=== PATIENT | male | born 1975 | race American Indian/Alaskan Native ===

== ENCOUNTER 2020-12-30 19:59 | Emergency (ER) | payer SELFPAY ==
[2020-12-30 21:19] VITALS: BP 134/89
--- NOTE | 2020-12-30 21:23 | Event Note ---
ED Screening Note Date of service: 12/30/20 Time: 21:22 ED Screening Note: Patient brought in by EMS, [place] Patient admits to alcohol use Patient also states some chest pain, however denies shortness of breath Patient refuses EKG chest x-ray This initial assessment/diagnostic orders/clinical plan/treatment(s) is/are subject to change based on patients health status, clinical progression and re- assessment by fellow clinical providers in the ED. Further treatment and workup at subsequent clinical providers discretion. Patient/guardian urged not to elope from the ED as their condition may be serious if not clinically assessed and managed. Initial orders include: Labs
== END 2020-12-30 21:22 | disposition left against medical advice (07) ==
LOC: ED 19:59
DX: F10.10 Alcohol abuse, uncomplicated (principal); Z53.21 Procedure and treatment not carried out due to patient leaving prior to being seen by health care provider

== ENCOUNTER 2021-01-05 04:48 | Emergency (ER) | payer SELFPAY ==
[2021-01-05] MEDS ORDERED: LACTATED RINGERS 1,000 ML IV ONE (04:51)
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
--- NOTE | 2021-01-05 05:39 | XRay Report ---
XR chest 1V ap INDICATION / CLINICAL INFORMATION: dyspnea COMPARISON: None available. FINDINGS: SUPPORT DEVICES: None. HEART / MEDIASTINUM: No significant abnormality. LUNGS / PLEURA: Lungs are clear. Costophrenic sulci are sharp. No pneumothorax. ADDITIONAL FINDINGS: No significant additional findings. IMPRESSION: 1. No acute findings. Signer Name: Francis Randle MD Signed: 01/05/2021 5:35 AM Workstation Name: [id number]
[2021-01-05 05:43] LABS: Hematocrit 35.4 % (35.5-45.6); Hemoglobin 11.8 gm/dl (11.8-15.2); Mean Corpuscular HGB Conc 33 % (32-34); Mean Corpuscular Volume 94 fl (84-94); Platelet Count 166 K/mm3 (140-440); Red Blood Count 3.77 M/mm3 (3.65-5.03); Red Cell Distribution Width 15.7 % (13.2-15.2)
[2021-01-05 05:51] LABS: INR 0.99 (0.87-1.13)
[2021-01-05 05:52] LABS: Alanine Aminotransferase 16 units/L (7-56); Albumin 4.5 g/dL (3.9-5); BUN/Creatinine Ratio 8; Blood Urea Nitrogen 8 mg/dL (9-20); Calcium 8.7 mg/dL (8.4-10.2); Hemolysis Index 10
[2021-01-05] MEDS ORDERED: MAGNESIUM SULFATE 2 GM/50 ML BAG IV ONE (06:08)
--- NOTE | 2021-01-05 06:45 | Emergency Department Report ---
ED Chest Pain HPI - General Chief Complaint: Alcohol Stated Complaint: ETOH Time Seen by Provider: 01/05/21 06:06 Source: EMS Mode of arrival: Wheelchair Limitations: Altered Mental Status - History of Present Illness Initial Comments: This is a 45-year-old male who was screened by one of my colleagues. He was thought to be inebriated and screening laboratory tests as well as an EKG were ordered. On my encounter the patient is really quite lethargic but will cooperate and speak coherently albeit extremely low volume. He does admit now that he had chest pain associated with cocaine placed within a "blunt". He has no chest pain at the time of my encounter. He makes mention of some prior shortness of breath. However his work of breathing is normal with a pulse oximetry of 100% and a normal heart rate as I see him. He does not report any history of cardiopulmonary disease. He does not report any regular medication. He denies heroin or any IV drug abuse. MD Complaint: chest pain -: minutes(s) Onset: associated with drug use Pain Location: substernal Pain Radiation: none Severity: mild Quality: other (Would not describe) Consistency: now resolved Improves With: nothing Worsens With: other (Cocaine abuse) Context: other re: dyspnea (Vague). denies: nausea, vomting, diaphoresis Other Symptoms: denies: cough, fever, syncope Treatments Prior to Arrival: none - Related Data Allergies Allergy/AdvReac Type Severity Reaction Status Date / Time bee venom protein (honey bee) Allergy Unknown Verified 12/30/20 21:16 Heart Score - HEART Score History: Slightly suspicious EKG: Non-specific Age: 45-65 Risk factors: 1-2 risk factors Troponin: < normal limit HEART Score: 3 - Critical Actions Critical Actions: 0-3 pts:0.9-1.7%risk of adverse cardiac event.Candidate for discharge ED Review of Systems ROS: Stated complaint: ETOH Other details as noted in HPI Comment: Unobtainable due to pts medical conditions (Patient lethargic not offering any supplemental complaints) ED Past Medical Hx - Past Medical History Previous Medical History?: No - Surgical History Additional Surgical History: lower teeth. right ankle - Social History Smoking Status: Current Every Day Smoker (Marijuana and cocaine) Substance Use Type: Alcohol, Cocaine, Marijuana ED Physical Exam - General Limitations: Physical Limitation General appearance: lethargic - Head Head exam: Present: atraumatic, normocephalic - Eye Eye exam: Present: normal appearance. Absent: scleral icterus - ENT ENT exam: Present: mucous membranes moist - Neck Neck exam: Present: normal inspection - Respiratory Respiratory exam: Present: normal lung sounds bilaterally. Absent: respiratory distress - Cardiovascular Cardiovascular Exam: Present: regular rate, normal rhythm. Absent: systolic murmur, diastolic murmur, rubs, gallop - GI/Abdominal GI/Abdominal exam: Present: soft, normal bowel sounds. Absent: distended, tenderness - Rectal Rectal exam: Present: deferred - Extremities Exam Extremities exam: Present: normal inspection - Back Exam Back exam: Present: normal inspection, other (Limited inspection) - Neurological Exam Neurological exam: Present: alert, oriented X3, CN II-XII intact (As testable). Absent: motor sensory deficit - Psychiatric Psychiatric exam: Present: normal mood, flat affect - Skin Skin exam: Present: warm, dry, intact, normal color. Absent: rash ED Course Vital Signs 01/05/21 01/05/21 01/05/21 04:52 05:13 05:36 Temperature 98.2 F Pulse Rate 102 H Respiratory 18 18 Rate Blood Pressure Blood Pressure 133/80 [Right] O2 Sat by Pulse 99 99 97 Oximetry 01/05/21 01/05/21 01/05/21 05:46 06:00 06:16 Temperature Pulse Rate Respiratory Rate Blood Pressure 133/80 127/78 129/88 Blood Pressure [Right] O2 Sat by Pulse 98 100 100 Oximetry 01/05/21 01/05/21 01/05/21 06:30 06:46 07:00 Temperature Pulse Rate Respiratory Rate Blood Pressure 135/113 148/104 146/101 Blood Pressure [Right] O2 Sat by Pulse 98 100 100 Oximetry 01/05/21 01/05/21 01/05/21 07:14 07:16 07:30 Temperature Pulse Rate 92 H Respiratory 18 Rate Blood Pressure 145/96 149/100 Blood Pressure 146/101 [Right] O2 Sat by Pulse 100 100 100 Oximetry 01/05/21 01/05/21 07:46 08:07 Temperature Pulse Rate 89 Respiratory 18 Rate Blood Pressure 146/96 Blood Pressure 135/87 [Right] O2 Sat by Pulse 100 99 Oximetry - Reevaluation(s) Reevaluation #1: Nurse alerted to perform EKG. 01/05/21 06:45 Reevaluation #2: Patient awake. He is asymptomatic. He received counseling regarding chest pain and substance abuse. He would be referred to primary care. 01/05/21 08:57 BETH score - Beth Score Age > 65: (0) No Aspirin use within the Past 7 Days: (0) No 3 or more CAD Risk Factors: (0) No 2 or more Angina events in past 24 hrs: (0) No Known CAD with more than 50% Stenosis: (0) No Elevated Cardiac Markers: (0) No ST Deviation Greater than 0.5mm: (0) No BETH Score: 0 ED Medical Decision Making - Lab Data Result diagrams: 01/05/21 05:12 01/05/21 05:12 Laboratory Results - last 24 hr 01/05/21 01/05/21 01/05/21 05:12 05:12 05:12 WBC 7.3 RBC 3.77 Hgb 11.8 Hct 35.4 L MCV 94 MCH 31 MCHC 33 RDW 15.7 H Plt Count 166 PT 13.0 INR 0.99 Sodium 134 L Potassium 4.0 Chloride 97.9 L Carbon Dioxide 23 Anion Gap 17 BUN 8 L Creatinine 1.0 Estimated GFR > 60 BUN/Creatinine Ratio 8 Glucose 94 Calcium 8.7 Magnesium 1.60 L Total Bilirubin 0.50 AST 37 ALT 16 Alkaline Phosphatase 79 Total Creatine Kinase 517 H Total Protein 7.5 Albumin 4.5 Albumin/Globulin Ratio 1.5 Salicylates Acetaminophen Plasma/Serum Alcohol 01/05/21 01/05/21 01/05/21 05:12 05:12 05:12 WBC RBC Hgb Hct MCV MCH MCHC RDW Plt Count PT INR Sodium Potassium Chloride Carbon Dioxide Anion Gap BUN Creatinine Estimated GFR BUN/Creatinine Ratio Glucose Calcium Magnesium Total Bilirubin AST ALT Alkaline Phosphatase Total Creatine Kinase Total Protein Albumin Albumin/Globulin Ratio Salicylates < 0.3 L Acetaminophen 5.0 L Plasma/Serum Alcohol 0.23 H Laboratory Results - last 24 hr 01/05/21 01/05/21 01/05/21 05:12 05:12 05:12 WBC 7.3 RBC 3.77 Hgb 11.8 Hct 35.4 L MCV 94 MCH 31 MCHC 33 RDW 15.7 H Plt Count 166 PT 13.0 INR 0.99 Sodium 134 L Potassium 4.0 Chloride 97.9 L Carbon Dioxide 23 Anion Gap 17 BUN 8 L Creatinine 1.0 Estimated GFR > 60 BUN/Creatinine Ratio 8 Glucose 94 Calcium 8.7 Magnesium 1.60 L Total Bilirubin 0.50 AST 37 ALT 16 Alkaline Phosphatase 79 Total Creatine Kinase 517 H CK-MB (CK-2) CK-MB (CK-2) Rel Index Troponin T Total Protein 7.5 Albumin 4.5 Albumin/Globulin Ratio 1.5 Urine Bilirubin Salicylates Urine Opiates Screen Urine Methadone Screen Acetaminophen Ur Barbiturates Screen Ur Phencyclidine Scrn Ur Amphetamines Screen U Benzodiazepines Scrn U Marijuana (THC) Screen Plasma/Serum Alcohol 01/05/21 01/05/21 01/05/21 05:12 05:12 05:12 WBC RBC Hgb Hct MCV MCH MCHC RDW Plt Count PT INR Sodium Potassium Chloride Carbon Dioxide Anion Gap BUN Creatinine Estimated GFR BUN/Creatinine Ratio Glucose Calcium Magnesium Total Bilirubin AST ALT Alkaline Phosphatase Total Creatine Kinase CK-MB (CK-2) CK-MB (CK-2) Rel Index Troponin T Total Protein Albumin Albumin/Globulin Ratio Urine Bilirubin Salicylates < 0.3 L Urine Opiates Screen Urine Methadone Screen Acetaminophen 5.0 L Ur Barbiturates Screen Ur Phencyclidine Scrn Ur Amphetamines Screen U Benzodiazepines Scrn U Marijuana (THC) Screen Plasma/Serum Alcohol 0.23 H 01/05/21 01/05/21 01/05/21 Unknown Unknown Unknown WBC RBC Hgb Hct MCV MCH MCHC RDW Plt Count PT INR Sodium Potassium Chloride Carbon Dioxide Anion Gap BUN Creatinine Estimated GFR BUN/Creatinine Ratio Glucose Calcium Magnesium Total Bilirubin AST ALT Alkaline Phosphatase Total Creatine Kinase 519 H CK-MB (CK-2) 6.2 H CK-MB (CK-2) Rel Index 1.1 Troponin T < 0.010 Total Protein Albumin Albumin/Globulin Ratio Urine Bilirubin Neg Salicylates Urine Opiates Screen Negative Urine Methadone Screen Negative Acetaminophen Ur Barbiturates Screen Negative Ur Phencyclidine Scrn Negative Ur Amphetamines Screen Negative U Benzodiazepines Scrn Negative U Marijuana (THC) Screen Negative Plasma/Serum Alcohol - EKG Data -: EKG Interpreted by Wy EKG shows normal: sinus rhythm, axis, intervals, QRS complexes, ST-T waves Rate: normal - EKG Data Interpretation: no acute changes, other (Early repolarization noted) - Radiology Data Radiology results: report reviewed (Chest x-ray no acute findings) Critical care attestation.: If time is entered above; I have spent that time in minutes in the direct care of this critically ill patient, excluding procedure time. ED Disposition Clinical Impression: Atypical chest pain, Alcohol abuse, Cocaine abuse Disposition: DC-01 TO HOME OR SELFCARE Is pt being admited?: No Does the pt Need Aspirin: No Condition: Stable Instructions: Nonspecific Chest Pain, Adult Additional Instructions: Obviously substance abuse can be bad for your heart/body. Certainly avoid this. I would recommend a baby aspirin a day. Return to the emergency department any recurrent chest pain or other symptoms as needed. Follow-up with primary care. Referrals: ANNABELLE WEBB MD [Primary Care Provider] - 2-3 Days Time of Disposition: 08:59
[2021-01-05 07:09] LABS: Creatine Kinase MB 6.2 ng/mL (0.0-4.0)
[2021-01-05 08:08] VITALS: BP 135/87
[2021-01-05 08:12] LABS: Bilirubin,Urine NEG (Negative); Blood,Urine NEG (Negative); Color,Urine Colorless (Yellow); Protein,Urine <15 mg/dL mg/dL (Negative); Urobilinogen,Urine < 2.0 mg/dL (<2.0)
[2021-01-05 08:20] LABS: Amphetamine Screen,Urine Negative; Benzodiazepines Screen,Urine Negative; Cannabinoid Screen,Urine Negative; Methadone Screen,Urine Negative; Opiate Screen,Urine Negative
[2021-01-05 08:48] LABS: Cocaine Screen,Urine Positive
== END 2021-01-05 09:43 | disposition home or self-care (01) ==
LOC: ED 04:48
DX: R07.89 Other chest pain (principal); F10.10 Alcohol abuse, uncomplicated; F14.10 Cocaine abuse, uncomplicated; F17.200 Nicotine dependence, unspecified, uncomplicated; Z91.030 Bee allergy status
CPT/HCPCS: 36415; 71045; 80053; 80307; 81001; 82550; 82553; 83735; 84484; 85027; 85610; 93005; 96361; 96365; 99285; J3475; J7120; 80320; G0480

== ENCOUNTER 2021-01-13 02:27 | Emergency (ER) | payer SELFPAY ==
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
[2021-01-13 12:41] VITALS: BP 142/85
== END 2021-01-13 12:46 | disposition home or self-care (01) ==
LOC: ED 02:27
DX: S02.19XA Other fracture of base of skull, initial encounter for closed fracture (principal); S05.11XA Contusion of eyeball and orbital tissues, right eye, initial encounter; S09.90XA Unspecified injury of head, initial encounter; Z98.890 Other specified postprocedural states; Z91.018 Allergy to other foods; X58.XXXA Exposure to other specified factors, initial encounter; Y93.89 Activity, other specified; Y92.89 Other specified places as the place of occurrence of the external cause; Y99.8 Other external cause status
CPT/HCPCS: 70450; 70486